=== PATIENT | female | born 1950 | race Caucasian/White ===

== ENCOUNTER → 2022-12-16 10:46 | Outpatient (REF) | payer MEDICARE, OTHER, SELFPAY | LOC: SDSPAT 10:46 | PROVIDERS: ATTENDING PHYSICIAN Obstetrics & Gynecology; FAMILY PHYSICIAN Internal Medicine; OTHER PHYSICIAN Internal Medicine Cardiovascular Disease | DX: D07.1 Carcinoma in situ of vulva (principal) | CPT/HCPCS: 36415; 93005 ==

== ENCOUNTER → 2023-05-30 11:44 | Outpatient (REF) | payer MEDICARE, OTHER, SELFPAY | LOC: HWWDC 11:44 | PROVIDERS: ATTENDING PHYSICIAN Nurse Practitioner Family | DX: Z12.31 Encounter for screening mammogram for malignant neoplasm of breast (principal) | CPT/HCPCS: 77063; 77067 ==

== ENCOUNTER → 2024-04-30 07:54 | Outpatient (REF) | payer MEDICARE, OTHER, SELFPAY | LOC: HWRCS 07:54 | PROVIDERS: ATTENDING PHYSICIAN Internal Medicine Cardiovascular Disease; FAMILY PHYSICIAN Family Medicine | DX: I10 Essential (primary) hypertension (principal); I48.0 Paroxysmal atrial fibrillation; E78.00 Pure hypercholesterolemia, unspecified; R07.89 Other chest pain | CPT/HCPCS: 78452; 93017; A9500; J2785 ==

== ENCOUNTER → 2024-08-26 08:42 | Outpatient (REF) | payer MEDICARE, OTHER, SELFPAY | LOC: HWWDC 08:42 | PROVIDERS: ATTENDING PHYSICIAN Family Medicine | DX: Z12.31 Encounter for screening mammogram for malignant neoplasm of breast (principal) | CPT/HCPCS: 77063; 77067 ==

== ENCOUNTER 2024-11-27 06:38 | Day surgery (SDC) | payer MEDICARE, OTHER, SELFPAY ==
[2024-11-27 07:30] VITALS: BMI 38.4
[2024-11-27 07:57] LABS: Glucose - Point of Care 187 mg/dl (70-99)
== END 2024-11-27 08:40 | disposition home or self-care (01) ==
LOC: CATH 06:38
PROVIDERS: ATTENDING PHYSICIAN Internal Medicine Cardiovascular Disease; FAMILY PHYSICIAN Family Medicine; OTHER PHYSICIAN Internal Medicine Cardiovascular Disease
DX: I48.19 Other persistent atrial fibrillation (principal); I10 Essential (primary) hypertension; E78.00 Pure hypercholesterolemia, unspecified; R07.9 Chest pain, unspecified; Z79.01 Long term (current) use of anticoagulants; Z79.85 Long-term (current) use of injectable non-insulin antidiabetic drugs; Z79.4 Long term (current) use of insulin
CPT/HCPCS: 82962; 92960; 93005

== ENCOUNTER → 2024-12-03 07:25 | Outpatient (REF) | payer MEDICARE, OTHER, SELFPAY | LOC: DHSLP 07:25 | PROVIDERS: ATTENDING PHYSICIAN Internal Medicine Critical Care Medicine; FAMILY PHYSICIAN Family Medicine | DX: G47.33 Obstructive sleep apnea (adult) (pediatric) (principal); G47.00 Insomnia, unspecified | CPT/HCPCS: 95811 ==

== ENCOUNTER → 2025-01-20 10:18 | Outpatient (REF) | payer MEDICARE, OTHER, SELFPAY ==
[2025-01-20 11:24] LABS: Hematocrit 39.8 % (37.0-47.0); Hemoglobin 13.4 g/dL (12.0-16.0); Mean Corp Hgb Conc. 33.7 g/dL (33.0-37.0); Mean Corpuscular Volume 89.6 fL (81.0-99.0); Nucleated Red Blood Cells % 0 %; Platelet Count 262 10^3/uL (130-400); Red Cell Dist. Width 12.6 % (11.5-14.5)
[2025-01-20 11:28] LABS: ALT (SGPT) 26 U/L (0-35); AST (SGOT) 27 U/L (14-36); Albumin 4.2 g/dl (3.5-5.0); Alkaline Phosphatase 154 U/L (38-126); Blood Urea Nitrogen 23 mg/dl (7-17); Calcium 9.3 mg/dl (8.4-10.2); Carbon Dioxide 32 mmol/L (22-30); Chloride 102 mmol/L (98-107); Glucose 168 mg/dl (70-99); Potassium 5.0 mmol/L (3.5-5.1); Sodium 138 mmol/L (135-145); Total Protein 6.3 g/dl (6.3-8.2); eGFR 58.39
== END ==
LOC: SDSPAT 10:18
PROVIDERS: ATTENDING PHYSICIAN Internal Medicine Cardiovascular Disease; FAMILY PHYSICIAN Family Medicine; OTHER PHYSICIAN Internal Medicine Cardiovascular Disease
DX: I48.19 Other persistent atrial fibrillation (principal)
CPT/HCPCS: 36415; 80053; 85025; 86850; 86900; 86901; 93005

== ENCOUNTER 2025-02-03 06:05 | Day surgery (SDC) | payer MEDICARE, OTHER, SELFPAY ==
[2025-01-20 10:36] VITALS: BMI 37.5
[2025-02-03] VITALS (23 sets, daily range): BP systolic 121–163; BP diastolic 64–100; BMI 37.5
[2025-02-03 06:59] LABS: Glucose - Point of Care 130 mg/dl (70-99)
[2025-02-03 09:01] LABS: ACT-LR - POC 316 Seconds (116-155)
[2025-02-03 09:08] LABS: Glucose - Point of Care 143 mg/dl (70-99)
[2025-02-03 09:22] LABS: ACT-LR - POC 350 Seconds (116-155)
--- NOTE | 2025-02-03 10:05 | ITS.CL.ABL ---
Vascular Manager - Ablation
Ablation
Procedure Report:
AFIB / A flutter ablation:
Ms. Arias is a very pleasant 74 yr old woman with medical history significant for symptomatic persistent atrial fibrillation s/p AF ablation - Cryoablation in 2014, redo with PVI with radiofrequency in June 2020 and hx of typical flutter
ablation in 2014 with CTI ablaiton who has recurrence of AF /FL and is here in the EP lab for atrial fibrillation / flutter ablation
Date of Procedure:
02/03/2025
Indications:
Symptomatic persistent atrial fibrillation / atrial flutter
Pre-Operative Diagnosis:
Persistent atrial fibrillation / atrial flutter
Post-Operative Diagnosis:
Persistent atrial fibrillation / atrial flutter
Procedure Performed:
Redo atrial fibrillation ablation
Roof line formation for atypical roof dependent atrial flutter
Posterior wall isolation ablation
Left atrial anterior wall tachycardia ablation
Biatrial flutter ablation
Ablation of anterior wall flutter line of block creation for sindhu-mitral flutter
Performing Physician:
Oralia Hussein MD
Assistants:
EP staff
Anesthesia:
See anesthesia records
Detailed Description of the Procedure:
Written informed consent was obtained from the patient after a full explanation of the risks and benefits of the procedure including the risks of sedation and anesthesia.
The patient was brought to the electrophysiology laboratory in stable condition in fasting state. Continuous electrocardiographic and hemodynamic monitoring was initiated.
The initial rhythm was atrial fibrillation.
The procedure site was meticulously prepared with surgical scrub and allowed to dry with no pooling. Sterile draping was applied to cover the procedure site. The image intensifier was draped with sterile bag and positioned over the patient. After
infusion of local anesthetic, vascular access was obtained under ultrasound guidance and sheaths were placed over guide wire as detailed below.
The images of the ultrasound of the femoral vessels were stored in patient chart.
Sheath and Catheter Placement:
Given patient renal transplant, long sheaths were used for the acess
Sheaths:
Agilis sheath in right femoral vein upgraded from 8Fr in right femoral vein
9Fr in left femoral vein
Catheters:
The Affera Sphere 9 catheter -bidirectional D/F - at locations of HRA, RV, LA and LV.
ICE catheter -AccuNav - at locations of RA, SVC, and RV.
Heparin was initiated after the access was obtained.
Intracardiac ECHO:
An 8-[place] AcuNav intracardiac ECHO (ICE) probe was advanced through the 9-[place] sheath in the left femoral vein into the right atrium under fluoroscopic and ICE ultrasound image guidance and a baseline ECHO study was performed. The left atrial
size was dilated. There was trace tricuspid regurgitation. The aortic valve was grossly normal. There was normal left ventricular size and function. There is a baseline small pericardial effusion. The ROSANA has normal velocities. The pulmonary had
good flow identified.
During the procedure, ICE was used for monitoring of complications, guidance of trans-septal puncture, monitor the catheter position and tracking ablation lesions. No change in the pericardial space noted throughout the procedure.
Trans-septal Puncture:
Heparin was initiated and infused to maintain appropriate ACT. A J-tipped guidewire was advanced through into the superior vena cava under fluoroscopic and ICE guidance. The Agilis sheath with BRK needle was advanced into the superior vena cava over
the guidewire. The apparatus was withdrawn until it was in contact with the fossa ovalis. The position was adjusted based on fluoroscopy and ultrasound images from ICE. Under fluoroscopic, hemodynamic and ICE ultrasound guidance, left atrium was
cannulated by advancing the needle. Once atrial septum was cannulated, the needle was pulled back and the guide wire was advanced through the needle into the left atrium. The guide wire was advanced into the left superior pulmonary vein. Both the
sheath and the dilator was advanced into the left atrium. The dilator with the needle was withdrawn. Blood was aspirated from the Agilis sheath and arterial blood confirmed. The sheath was flushed. Saline injection noted into the left atrium on ICE.
The waveform of the LA pressure was recorded. The mapping catheter was advanced in the Agilis sheath into the left pulmonary vein.
3D Electroanatomic Mapping:
Using the Sphere 9 Affera catheter advanced through Agilis sheath into the left atrium, an electroanatomic map (EAM) of the left atrium was created using [employer] mapping system with COGEON-1 software. The map was used for localization of catheter
position and tacking of ablation lesions. The EAM of the left atrium showed a total of 4 PVs with two left and the two right sided pulmonary veins with all electrically isolated from the body the LA. It showed scattered scar on the posterior wall of
the LA. The LA was dilated in size.
Cardioversion:
The EAM of the LA was difficult to assess in atrial fibrillation and to assess PV and posterior wall connections, patient was cardioverted to sinus rhythm. A synchronized 150 J shock was delivered via monica-posterior Zoll patches restoring his
rhythm to sinus.
The EAM in sinus rhythm showed silent vein with some electrograms still present on the posterior wall. There was extensive scar on the anterior wall slowing the conduction and a set up for flutter.
Following the EAM, preparation were made for ablation.
Ablation:
Ablation # 1: Atypical atrial flutter / Roof line Formation:
Given silent pulmonary veins, the decision was made to proceed with roof line formation for the AF/Flutter.
Pulsed field ablation was performed using an open irrigation, bidirectional, contact sensing, dual energy ablation catheter (Affera sphere -9). A set of pulsed field ablations were placed on the roof line connecting the left superior pulmonary vein
ablation lesions to the right superior pulmonary vein lesions rings.
Confirmation of the PVI and bidirectional block:
Following achievement of entrance block at the pulmonary veins, pacing from the Sphere 9 affera catheter in each of the four veins at 20 milliamps for 4 milliseconds showed entrance and exit block.
The LA was mapped with [employer] mapping system with Prism-1 software in sinus rhythm confirming the line of block at the ablation lesions lines.
Ablation # 2: Atrial fibrillation ablaiton with Posterior wall isolation with the Box lesions set Formation:
There was a significant fractionation seen in the posterior wall and LA AF foci along with CFAE made it clear as the posterior wall is critical in maintaining the atrial fibrillation and the decision was made to isolate the posterior wall by
creating a �Box� lesions.
A set of Pulsed field ablations were placed on the floor line connecting the left inferior pulmonary vein ablation lesions to the right inferior pulmonary vein lesions rings.
The sphere 9 in the posterior wall showed entrance block and the pacing from the posterior wall showed no exit from the box lesions confirming the exit block.
With the box lesion created and block confirmed, the decision was made to ablate the posterior wall severing epicardial connections and decision was made to create the Y ablation on the posterior wall.
Ablation # 3: Anterior wall focal / micro reentry flutter ablation:
There was focal atrial tachycardia noted at the base of the ROSANA on the anterior wall with baseline severely fractionated signals adjacent to a scar tissue.
Series of ablations were placed to suppress any abnormal activity.
Ablation # 4: Atypical flutter ablation with anterior left atrial line of block:
The LA anterior wall has significant scar that was a substrate for mitral flutter. A series of ablations were placed on the anterior wall at the scar connecting the RSPV to the scar to the mitral annulus.
The pulsed field energy was switched to radiofrequency at the mitral annulus to avoid coronary spasm.
EP study:
Sinus Node Function: The sinus node functions are within acceptable normal range.
Atrioventricular Kam Function: Post ablation HV interval was unchanged at 68 msec
Procedure End
ICE study was done again that showed no epicardial accumulation. No complications noted.
Following the completion of the EP study, catheters were removed. Protamine 40 mg was given at the end of the procedure and ACT was checked repeatedly. The sheaths were removed and hemostasis achieved with Fig of 8 suture and manual compression
after acceptable ACT is achieved.
Left atrial Pressure:
Pre-Procedure: Mean LA pressure was 12mmHg (AF)
Post-Procedure: Mean LA pressure was 18mmHg (sinus)
Post-Procedure: Mean RA pressure was 10mmHg
Fluoro Time:
0.8min / 9.2mGy
Estimated Blood loss:
<10 cc
Specimens Removed:
None.
Implants / Devices:
None
Urine output:
None
Packs / Drains/ Tubes:
None
Instrument / Sponge Count Correct:
Yes
Complications of the Procedure:
None
Condition of Patient at Time of Transfer:
Hemodynamically stable with no neurological or vascular compromise.
Summary:
Successful atrial fibrillation ablation, roof flutter line creation, Posterior wall isolation, anterior mitral flutter line creation .
Figures from the Procedure:
Figure 1: The electroanatomic mapping (EAM) of the left atrium with bipolar voltage (purple indicates normal electrical activity with red as no myocardial muscle electric activity indicating a line of block or scar.
EAM in AF
EAM in sinus
EAM post ablation
[2025-02-03 10:45] LABS: Glucose - Point of Care 171 mg/dl (70-99)
--- NOTE | 2025-02-03 14:17 | W.PN.UPDATE ---
Update Note
Progress Note Update
Pt seen post PFA. Right groin site without ht/bleeding, non tender. OOB ambulating. Post EKG NSR w/1st deg AVB, no acute changes. Resume eliquis tonight. Continue other meds as before. Followup at [facility] as scheduled. Home today if groin site/tele
remain stable.
== END 2025-02-03 14:45 | disposition home or self-care (01) ==
LOC: CATH 06:05
PROVIDERS: ATTENDING PHYSICIAN Internal Medicine Cardiovascular Disease; FAMILY PHYSICIAN Family Medicine; REFERRING PHYSICIAN Internal Medicine Cardiovascular Disease
DX: I48.19 Other persistent atrial fibrillation (principal); I48.92 Unspecified atrial flutter; I13.0 Hypertensive heart and chronic kidney disease with heart failure and stage 1 through stage 4 chronic kidney disease, or unspecified chronic kidney disease; I50.32 Chronic diastolic (congestive) heart failure; E78.5 Hyperlipidemia, unspecified; E66.01 Morbid (severe) obesity due to excess calories; Z68.37 Body mass index [BMI] 37.0-37.9, adult; E11.51 Type 2 diabetes mellitus with diabetic peripheral angiopathy without gangrene; Z79.85 Long-term (current) use of injectable non-insulin antidiabetic drugs; E11.22 Type 2 diabetes mellitus with diabetic chronic kidney disease; Z79.84 Long term (current) use of oral hypoglycemic drugs; F41.9 Anxiety disorder, unspecified; Z79.899 Other long term (current) drug therapy; N18.30 Chronic kidney disease, stage 3 unspecified; M19.90 Unspecified osteoarthritis, unspecified site; Z86.018 Personal history of other benign neoplasm; Z88.8 Allergy status to other drugs, medicaments and biological substances; Z90.49 Acquired absence of other specified parts of digestive tract; K76.0 Fatty (change of) liver, not elsewhere classified; J84.9 Interstitial pulmonary disease, unspecified; J45.20 Mild intermittent asthma, uncomplicated; I44.0 Atrioventricular block, first degree; H40.9 Unspecified glaucoma; G47.33 Obstructive sleep apnea (adult) (pediatric); Z91.040 Latex allergy status; Z91.048 Other nonmedicinal substance allergy status; Z96.652 Presence of left artificial knee joint
CPT/HCPCS: C1733; C1769; C1894; C1730; C1766; C1892; C1759; 82962; 85347; 93005; 93655; 93656; 93657

== ENCOUNTER 2025-02-07 10:18 | Emergency (ER) | payer MEDICARE, OTHER, SELFPAY ==
[2025-02-07 10:33] VITALS: BP 178/102
[2025-02-07 10:54] LABS: Hematocrit 35.8 % (37.0-47.0); Hemoglobin 12.2 g/dL (12.0-16.0); Mean Corp Hgb Conc. 34.1 g/dL (33.0-37.0); Mean Corpuscular Volume 88.0 fL (81.0-99.0); Nucleated Red Blood Cells % 0 %; Platelet Count 239 10^3/uL (130-400); Red Cell Dist. Width 12.9 % (11.5-14.5)
[2025-02-07 11:10] LABS: ALT (SGPT) 70 U/L (0-35); AST (SGOT) 32 U/L (14-36); Albumin 4.1 g/dl (3.5-5.0); Alkaline Phosphatase 179 U/L (38-126); Blood Urea Nitrogen 25 mg/dl (7-17); Calcium 9.3 mg/dl (8.4-10.2); Carbon Dioxide 32 mmol/L (22-30); Chloride 97 mmol/L (98-107); Glucose 189 mg/dl (70-99); Potassium 5.0 mmol/L (3.5-5.1); Sodium 132 mmol/L (135-145); Total Protein 6.5 g/dl (6.3-8.2); eGFR 58.39
[2025-02-07 11:23] LABS: Troponin I 0.115 ng/ml
[2025-02-07 11:38] VITALS: BMI 37.5
--- NOTE | 2025-02-07 11:47 | ED.GENMED ---
History of Present Illness
<Mavis Salinas PA-C - Last Filed: 02/07/25 16:17>
General
Chief Complaint: Breathing Problem
Source: patient
Exam Limitations: none
Time Seen by Provider: 02/07/25 11:30
History of Present Illness
History of Present Illness:
74yoF with a history of atrial fibrillation on Eliquis, hypertension, hyperlipidemia, insulin-dependent diabetes, and interstitial lung disease presenting for ration of shortness of breath. Patient underwent cardiac ablation 4 days ago with
[facility] for atrial fibrillation. She has been short of breath for the past several months dating back to August which was thought to be related to her atrial fibrillation. Her shortness of breath has continued and has not gotten any better since the
ablation. She had a fever of 101 three days ago. She spoke with Dr. Oliva who is her primary pet counselor and was told to go to the ED for a CXR to evaluate for CHF. She states her legs are slightly more swollen than normal. Patient has had
complications with a past ablation and developed a pericardial effusion that required drainage.
Past History
<Mavis Salinas PA-C - Last Filed: 02/07/25 16:17>
Past History
ED Past Medical History: HTN, Hypercholesterolemia and NIDDM
ED Past Surgical History: Cholecystectomy, Gynecological and Other (Hernia)
Social History
Tobacco: Former smoker
Alcohol: None
Drug: None
Personal: Single
Living: with family
Phy Exam
<Mavis Salinas PA-C - Last Filed: 02/07/25 16:17>
General Physical Exam
General Presentation: well appearing and no apparent distress
General Skin: warm and dry
General Habitus: normal
General Mental: alert
ENT Exam
ENT Exam: normocephalic
Cardiovascular Exam
Cardiovascular Exam: regular rate/rhythm and no edema
Pulmonary Exam
Pulmonary Exam: no respiratory distress, no rhonchi, no stridor, no wheezing and other (Bibasilar rales)
Neurological Exam
Neurological Exam: alert
[place] Coma Scale
Eye Opening: Spontaneous
Verbal Response: Oriented
Motor Response: Obeys Commands
GCS Total Score: 15
Musculoskeletal Exam
Musculoskeletal Exam: other (R groin site soft without swelling. )
Skin Exam
Skin Exam: normal color and warm/dry
Psychiatric Exam
Psychiatric Exam: normal mood/affect
<CINDY NarayananC - Last Filed: 02/07/25 16:02>
[place] Coma Scale
GCS Total Score: 15
Scores
<Mavis Salinas PA-C - Last Filed: 02/07/25 16:17>
Heart Failure Risk
Heart Failure Risk Score: Not Applicable
Course
<CINDY ByrneC - Last Filed: 02/07/25 16:17>
Orders/Labs/Results
Orders:
Orders
02/07/25 10:36
Electrocardiogram (*1) Urgent
Reason for Study: Other
Other Reason for Exam: Respiratory Distress
Cardiac Monitoring- Treatment ONCE
EKG- Treatment ONCE
IV Insert/Care/Rem.- Treatment PRN
CR Chest - 2 Views Urgent
Comment:
Reason For Exam: respiratory distress
O2 Therapy [RESP] Urgent
Titrate/Wean O2 to maintain O2 sat greater than (%): 93
Special Instructions: TO MAINTAIN CONTINUOUS O2 SATS >/= 93%
Pulse Ox/cont/shift [RESP] Urgent
Quantity: 1
Special Instructions: continuous pulse ox
02/07/25 10:47
Complete Blood Count/With Diff Urgent
Comprehensive Metabolic Panel Urgent
NT-proBNP Urgent
Troponin I Urgent
02/07/25 11:48
Cardiac Monitoring- Treatment ONCE
02/07/25 12:38
CARDIOLOGY CONSULT Urgent
Consulting Provider: Bereket Swenson
Was physician already notified: Yes
02/07/25 13:22
Echo 2D MMode Color/Doppler Urgent
Reason for Study: Shortness of breath
02/07/25 15:02
COVID-19 Antigen Urgent
Source: Nasal Swab
Influenza A+B Rapid Molecular Urgent
LETITIA Source: Nasal Swab
Specimen Description:
Abnormal Lab Results
02/07/25
10:47
RBC 4.07 L 10^6/uL
(4.20-5.40)
Hct 35.8 L %
(37.0-47.0)
Absolute Lymphs (auto) 0.8 L 10^3/uL
(1.2-3.4)
Neutrophils % 77.6 H %
(42.2-75.2)
Lymphocytes % 10.2 L %
(20.5-51.1)
Sodium 132 L mmol/L
(135-145)
Chloride 97 L mmol/L
(98-107)
Carbon Dioxide 32 H mmol/L
(22-30)
BUN 25 H mg/dl
(7-17)
Glucose 189 H mg/dl
(70-99)
Total Bilirubin 1.4 H mg/dl
(0.2-1.3)
ALT 70 H U/L
(0-35)
Alkaline Phosphatase 179 H U/L
(38-126)
Troponin I 0.115 H* ng/ml
02/07/25 10:47
02/07/25 10:47
Vital Signs
Initial and Last Documented VS:
Initial Vital Signs
Temp Pulse Resp BP Pulse Ox
99.0 F 76 22 178/102 99
02/07/25 10:33 02/07/25 10:33 02/07/25 10:33 02/07/25 10:33 02/07/25 10:33
Last Documented Vital Signs
Temp Pulse Resp BP Pulse Ox
98.6 F 73 19 183/83 99
02/07/25 15:35 02/07/25 15:00 02/07/25 15:00 02/07/25 15:00 02/07/25 15:00
<Marcus Phillips PA-C - Last Filed: 02/07/25 16:02>
Orders/Labs/Results
Orders:
Orders
02/07/25 10:36
Electrocardiogram (*1) Urgent
Reason for Study: Other
Other Reason for Exam: Respiratory Distress
Cardiac Monitoring- Treatment ONCE
EKG- Treatment ONCE
IV Insert/Care/Rem.- Treatment PRN
CR Chest - 2 Views Urgent
Comment:
Reason For Exam: respiratory distress
O2 Therapy [RESP] Urgent
Titrate/Wean O2 to maintain O2 sat greater than (%): 93
Special Instructions: TO MAINTAIN CONTINUOUS O2 SATS >/= 93%
Pulse Ox/cont/shift [RESP] Urgent
Quantity: 1
Special Instructions: continuous pulse ox
02/07/25 10:47
Complete Blood Count/With Diff Urgent
Comprehensive Metabolic Panel Urgent
NT-proBNP Urgent
Troponin I Urgent
02/07/25 11:48
Cardiac Monitoring- Treatment ONCE
02/07/25 12:38
CARDIOLOGY CONSULT Urgent
Consulting Provider: Bereket Swenson
Was physician already notified: Yes
02/07/25 13:22
Echo 2D MMode Color/Doppler Urgent
Reason for Study: Shortness of breath
02/07/25 15:02
COVID-19 Antigen Urgent
Source: Nasal Swab
Influenza A+B Rapid Molecular Urgent
LETITIA Source: Nasal Swab
Specimen Description:
Abnormal Lab Results
02/07/25
10:47
RBC 4.07 L 10^6/uL
(4.20-5.40)
Hct 35.8 L %
(37.0-47.0)
Absolute Lymphs (auto) 0.8 L 10^3/uL
(1.2-3.4)
Neutrophils % 77.6 H %
(42.2-75.2)
Lymphocytes % 10.2 L %
(20.5-51.1)
Sodium 132 L mmol/L
(135-145)
Chloride 97 L mmol/L
(98-107)
Carbon Dioxide 32 H mmol/L
(22-30)
BUN 25 H mg/dl
(7-17)
Glucose 189 H mg/dl
(70-99)
Total Bilirubin 1.4 H mg/dl
(0.2-1.3)
ALT 70 H U/L
(0-35)
Alkaline Phosphatase 179 H U/L
(38-126)
Troponin I 0.115 H* ng/ml
02/07/25 10:47
02/07/25 10:47
Vital Signs
Initial and Last Documented VS:
Initial Vital Signs
Temp Pulse Resp BP Pulse Ox
99.0 F 76 22 178/102 99
02/07/25 10:33 02/07/25 10:33 02/07/25 10:33 02/07/25 10:33 02/07/25 10:33
Last Documented Vital Signs
Temp Pulse Resp BP Pulse Ox
98.6 F 73 19 183/83 99
02/07/25 15:35 02/07/25 15:00 02/07/25 15:00 02/07/25 15:00 02/07/25 15:00
<Mavis Salinas PA-C - Last Filed: 02/07/25 16:17>
MDM/Problems Addressed
Differential Diagnosis Includes:
74yoF here with SOB. Had an ablation on Monday for afib. Sent in by her pet counselor to be evaluated for CHF. Also had a fever a few days ago but is afebrile currently. No significant peripheral edema noted on exam. Bibasilar rales noted. She is
hypertensive with otherwise stable vital signs. NSR on monitor during exam. Differential diagnosis includes but is not limited to: CHF exacerbation, pericardial effusion, consider ACS, pneumonia
Initial ED plan: Workup initiated in triage. Troponin elevated at 0.115 which may be secondary to her recent ablation. BNP 1230. EKG shows NSR with nonspecific T wave changes. Will check CXR and consult cardiology.
<Mavis Salinas PA-C - Last Filed: 02/07/25 16:17>
*Pulse Oximetry
SaO2: 99
Oxygen Mode of Delivery: Room air
Patient hypoxic: no
*EKG
Interpreted by ED Provider?: Yes
EKG Intrepretation Date: 02/07/25
Heart Rate: 74
Rate: normal
Rhythm: sinus
[place]: normal axis
Interval: normal interval
QRS Pattern: normal QRS
Ischemia: other (nonspecific T wave changes)
*Critical Care Note
Total Time (30-74mins, 75-104mins- exclusive of procedures): Not Applicable
<Marcus Phillips PA-C - Last Filed: 02/07/25 16:02>
Update Note
Update Note:
Assumed care of patient pending cardiology evaluation. Cardiology and to see patient and reviewed their echo. Patient will double up on the Lasix this weekend and follow-up next week with cardiology team. No indication for admission. Stable for
discharge
ED Attending Note
<Mavis Salinas PA-C - Last Filed: 02/07/25 16:17>
-
Portions of this chart may have been created with voice recognition software.� Occasional wrong word or��sound alike� substitutions may have occurred due to the inherent limitations of voice recognition software.
Discharge Plan
Departure
Patient Disposition: Home (Routine Discharge)
Date of Disposition: 02/07/25
Time of Disposition: 16:02
Patient with high blood pressure during this ER visit?: No
Discharge Problem:
Breath shortness
Prescriptions:
No Action
lysine [L-Lysine] 500 MG tablet
500 mg PO DAILY
brimonidine-timolol [Combigan] 1 DROP drops
1 drp BOTH EYES BID
Eliquis 5 MG tablet
5 mg PO BID
escitalopram oxalate [Lexapro] 5 mg Tablet
5 mg PO DAILY
furosemide 40 MG tablet
40 mg PO BID Qty: 1 0RF
acetaminophen [Tylenol] 325 mg tablet
650 mg PO DAILYPRN PRN (Reason: mild pain)
polyethylene glycol 3350 [Miralax] 17 gram/dose Powder
17 g PO DAILYPRN PRN (Reason: constipation)
PreserVision AREDS-2 250-90-40-1 mg Capsule
1 tab PO BID
hydralazine 10 mg Tablet
30 mg PO BID
dexlansoprazole 60 mg Capsule,Biphase Delayed Releas
60 mg PO QPM
Lumigan 0.01 % Drops
1 drp BOTH EYES QPM
Ozempic 2 mg/dose (8 mg/3 mL) Pen Injector
2 mg SC TU
carvedilol 6.25 mg Tablet
6.25 mg PO HS
acetaminophen-codeine 300-15 mg Tablet
1 tab PO DAILYPRN PRN (Reason: moderate pain)
insulin degludec [Tresiba FlexTouch U-100] 100 unit/mL (3 mL) Insulin Pen
10 unit SC HS
Referrals:
Julisa,Ally K., DO [Family Provider, Family Practice]
Activity Restrictions/Additional Instructions:
Please double your Lasix this weekend as discussed by cardiology. Please follow-up with cardiology team next week. Return if needed
Interventions
Interventions:
*Risk Screen - Suicide Last Done: 02/07/25 10:33
*General Assessment Last Done: 02/07/25 11:35
*Neglect/Abuse Screening Last Done: 02/07/25 11:35
*ED- Fall Risk Assessment Last Done: 02/07/25 11:35
*ED COVID-19 Vaccine History Last Done: 02/07/25 11:35
*ED Influenza Vaccine History Last Done: 02/07/25 11:35
ED- Cardiac Assessment Last Done: 02/07/25 11:35
ED- Pulmonary Assessment Last Done: 02/07/25 11:35
Discharge Date and Time
Print Language: [place]ET[place]
[2025-02-07 11:53] VITALS: BP 157/93
[2025-02-07 13:23] VITALS: BP 184/85
--- NOTE | 2025-02-07 13:28 | CON.CAR ---
Addendum entered and electronically signed by Bereket Swenson MD 02/07/25 16:30:
I reviewed and agree with the note by FELIX and it accurately reflects our care.
I saw and evaluated the patient, and I provided the substantive portion of the medical decision making. My assessment and plan is below:
74-year-old female with persistent atrial fibrillation status post ablation on 02/03/2025, ILD, and DEREK on BiPAP who presents with worsening shortness of breath since ablation. During ablation on 02/03, preprocedure mean LA 12 mmHg (AF),
postprocedure 18 mmHg (SR)
CXR with ILD but no significant pulmonary edema
Labs notable for troponin 0.115, proBNP 1230, creatinine 1.0
ECG shows normal sinus rhythm with first-degree AV block and nonspecific ST to T wave changes (unchanged from prior)
TTE 02/07/2025: LVEF 63%, IVC collapsible, PASP 31 mmHg, no pericardial effusion
Shortness of breath: Postprocedure left atrial pressure 18 mmHg on 02/03. She likely has some degree of volume overload though today's data is discordant (CXR with no pulmonary edema, Trop/BNP unreliable with recent ablation, IVC collapsible on
TTE). She will double up on Lasix and take 80 mg twice daily through the weekend. She will call our office on Monday with an update on symptoms.
Original Note:
Consultation
Consultation Request
Date/Time Consultation Requested: 02/07/2025 12:40
Date/Time Consultation Performed: 02/07/2025 13:30
Requesting Provider: Mavis Goodwin PA-C
Performing Provider: FELIX Klein for Dr. Swenson
Reason for Consultation: Shortness of breath
Medical History
-
Chief Complaint: Shortness of breath
History of Present Illness:
Lila Arias is a 74-year-old female with persistent atrial fibrillation (status post ablation 02/03/2025, on apixaban), pericardial effusion status post pericardiocentesis (2020), hypertension, CKD stage IIIb, type 2 diabetes mellitus,
hypercholesterolemia with statin intolerance, ILD, and DEREK on BiPAP who presents to the emergency department with a chief complaint of shortness of breath. She denies associated cough. Her shortness of breath started the day after the procedure.
The day following the procedure she also had a fever of 101. Since then she has been using Tylenol but still has a low-grade temperature. BP above goal in the emergency department. She is not having any chest pain.
Past Medical History
Past Medical History: Arrhythmias (Persistent atrial fibrillation status post ablation 02/03/2025), HTN, Hypercholesterolemia, IDDM, Renal Failure (CKD stage IIIb) and Other (ILD, DEREK on BiPAP)
Past Surgical History: Gynecological and Orthopedic
Social History
Tobacco: Former Smoker
Drug: None
Family History
Family History: Reviewed & Not Pertinent
Allergies / Home Medications
Allergy/AdvReac Type Severity Reaction Status Date / Time
adhesive Allergy red/dasilva Verified 02/07/25 10:32
budesonide (From Symbicort) Allergy hyperactive, Verified 02/07/25 10:32
'jitters'
dapagliflozin (From Farxiga) Allergy yeast Verified 02/07/25 10:32
infection
ezetimibe Allergy nausea, Verified 02/07/25 10:32
weakness,
restless
legs
formoterol (From Symbicort) Allergy hyperactive, Verified 02/07/25 10:32
'jitters'
latex Allergy redness/bur Verified 02/07/25 10:32
ns
lisinopril Allergy cough Verified 02/07/25 10:32
losartan Allergy cough,bloat Verified 02/07/25 10:32
ing
metformin Allergy Abdominal Verified 02/07/25 10:32
bloating
metoprolol Allergy extreme Verified 02/07/25 10:32
fatigue
repaglinide (From Prandin) Allergy Abdominal Verified 02/07/25 10:32
bloating
[id number] Reductase Allergy nausea, Verified 02/07/25 10:32
Inhibitor weakness,
restless
legs
�Medication �Instructions �Recorded �Confirmed �Type
lysine 500 mg tablet (L-Lysine) 500 mg PO DAILY Supplement 03/06/14 02/07/25 History
apixaban 5 mg tablet (Eliquis) 5 mg PO BID Blood clot 05/22/20 02/07/25 History
prevention/tx
brimonidine 0.2 %-timolol 0.5 % 1 drp BOTH EYES BID Eye condition 05/22/20 02/07/25 History
eye drops (Combigan)
escitalopram oxalate 5 mg tablet 5 mg PO DAILY Mental Health/Anxiety 11/18/21 02/07/25 History
(Lexapro)
furosemide 40 mg tablet 40 mg PO BID Fluid 05/19/22 02/07/25 Rx
retention/Swelling #1 tab
acetaminophen 325 mg tablet 650 mg PO DAILYPRN PRN mild pain 12/21/22 02/07/25 History
(Tylenol)
polyethylene glycol 3350 17 17 g PO DAILYPRN PRN constipation 12/21/22 02/07/25 History
gram/dose oral powder (Miralax)
vit C 250 mg-vit E 90 mg-zinc 40 1 tab PO BID Supplement 12/21/22 02/07/25 History
mg-copper 1 [id number]
capsule (PreserVision AREDS-2)
bimatoprost 0.01 % eye drops 1 drp BOTH EYES QPM Eye Condition 11/27/24 02/07/25 History
(Lumigan)
dexlansoprazole 60 mg 60 mg PO QPM Gastrointestinal Issue 11/27/24 02/07/25 History
capsule,biphase delayed release
hydralazine 10 mg tablet 30 mg PO BID Blood Pressure 11/27/24 02/07/25 History
semaglutide 2 mg/dose (8 mg/3 mL) 2 mg SC TU Diabetes 11/27/24 02/07/25 History
subcutaneous pen injector (Ozempic)
acetaminophen 300 mg-codeine 15 mg 1 tab PO DAILYPRN PRN moderate pain 01/16/25 02/07/25 History
tablet
carvedilol 6.25 mg tablet 6.25 mg PO HS Heart 01/16/25 02/07/25 History
Disease/Condition
insulin degludec 100 unit/mL (3 10 unit SC HS Diabetes 02/03/25 02/07/25 History
mL) subcutaneous pen (Tresiba
FlexTouch U-100 insulin)
Review of Systems
-
History Source: Patient
All other systems: Negative unless noted
Constitutional: Fatigue
EENT: No Symptoms
Respiratory: Trouble Breathing
Cardiac: No Symptoms
Abdomen/GI: No Symptoms
: No Symptoms
Musculoskeletal: No Symptoms
Skin: No Symptoms
Neurological: No Symptoms
Endocrine: No Symptoms
Hematologic/Lymphatic: No Symptoms
Physical Exam
Vital Signs
Temp Pulse Resp BP Pulse Ox
99.0 F 87 13 178/102 99
02/07/25 10:33 02/07/25 11:36 02/07/25 11:36 02/07/25 10:33 02/07/25 11:48
Lab Results
02/07/25 10:47
02/07/25 10:47
Troponin I 0.115 ng/ml H* 02/07/25 10:47
Low-V-Hcrvrccjnlw Pept 1230 pg/ml 02/07/25 10:47
Physical Exam
General: Well Developed, Well Nourished, No Apparent Distress and Comfortable
HEENT: Normocephalic, Anicteric and Moist Mucous Membranes
Respiratory: Crackles (Right base)
Cardiac: S1/S2 and Regular Rhythm; Negative Peripheral Edema
Breast: Deferred by me
GI: Soft, Non Tender, Non Distended and Normal Bowel Sounds
Rectal: Deferred by Provider
Genito-urinary: No Costovertebral Tender
Musculoskeletal: No Clubbing and No Cyanosis
Skin: Warm and Dry
Neuro: AO x 3
Hematologic/Lymphatic: No Lymphadenopathy
Psych: Calm
Impression / Plan
-
I/P: 74F with persistent atrial fibrillation (status post ablation 02/03/2025, on apixaban), pericardial effusion status post pericardiocentesis (2020), hypertension, CKD stage IIIb, type 2 diabetes mellitus, hypercholesterolemia with statin
intolerance, ILD, and DEREK on BiPAP who presents to the emergency department with a chief complaint of shortness of breath.
Primary associate partner: Dr. Oliva
Shortness of breath
- DDx includes pericardial effusion and HFpEF
- Preprocedure mean LA 12 mmHg (AF), postprocedure 18 mmHg (SR)
- Update echocardiogram
Febrile
- Tmax 101 02/04/2025, PRN Tylenol since then
- Low grade temperature in ER
Persistent atrial fibrillation status post ablation
- Stable in sinus rhythm on current dose of carvedilol
- Status post ablation 01/29/2025, prior ablation in 2020
- Oral Anticoagulation: Eliquis 5 mg twice daily, she denies missed doses since procedure, no abnormal bleeding
- [id number]: score at least 5 (HTN, age 75 or more, Diabetes Mellitus, female gender)
Abnormal troponin, nonischemic myocardial injury in the setting of recent cardiac procedure (ablation)
- EKG without acute ischemia
- She is not having any chest pain
Pericardial fusion status post pericardiocentesis (2020), this was post ablation echocardiogram as above
Hypertension, chronic and stable managed by nephrology
CKD stage IIIb, managed by nephrology
Type 2 diabetes mellitus, chronic and stable
Hypercholesterolemia statin intolerance
ILD, managed by pulmonary
DEREK on BiPAP
Data Reviewed
-
EKG: Report Reviewed by me (Sinus rhythm, first-degree AV block)
Radiology: Report Reviewed by me (CXR: Minimal chronic scarring within the right midlung zone, unchanged compared to prior chest x-ray, and also unchanged)
Medical Tests (Nuc Med, Echo etc): Report Reviewed by me
Labs: Labs Reviewed by me
Old Records: Reviewed
[2025-02-07 15:00] VITALS: BP 183/83
[2025-02-07 15:38] LABS: COVID-19 Antigen Negative (Negative)
== END 2025-02-07 16:35 | disposition home or self-care (01) ==
LOC: EMR 10:18
PROVIDERS: Physician Assistant; CONSULT PHYSICIAN Student in an Organized Health Care Education/Training Program; EMERGENCY PHYSICIAN Emergency Medicine; FAMILY PHYSICIAN Family Medicine
DX: R06.02 Shortness of breath (principal); I12.9 Hypertensive chronic kidney disease with stage 1 through stage 4 chronic kidney disease, or unspecified chronic kidney disease; E11.22 Type 2 diabetes mellitus with diabetic chronic kidney disease; N18.32 Chronic kidney disease, stage 3b; J84.9 Interstitial pulmonary disease, unspecified; Z79.01 Long term (current) use of anticoagulants; Z83.3 Family history of diabetes mellitus; Z87.891 Personal history of nicotine dependence; Z90.49 Acquired absence of other specified parts of digestive tract; Z98.1 Arthrodesis status; G47.33 Obstructive sleep apnea (adult) (pediatric); E78.00 Pure hypercholesterolemia, unspecified
CPT/HCPCS: 99283; 71046; 80053; 83880; 84484; 85025; 87502; 87811; 93005; 93306